=== PATIENT | male | born 2000 | race Two or more races ===

== ENCOUNTER 2020-01-26 14:58 | Emergency (ER) | payer OTHER ==
[~2020-01-26] VITALS: Ht 170.2 cm; Wt 72.6 kg
--- NOTE | 2020-01-26 15:41 | Emergency Room Report ---
History of Present Illness General Chief Complaint: Sore Throat Source: Patient Present Illness HPI 19-year-old male presents to the emergency department complaining 5 out of 10 severity pain and tenderness to the throat as well as an associated headache x2 days. Patient reports fevers and chills. He reports he has been taking Tylenol at home which does provide some relief of his pain and his fever. Patient reports he last took Tylenol at 6 AM this morning. Patient denies cough, shortness of breath, neck pain/stiffness or photophobia. He denies pain or swelling that is unilateral in the throat. He denies changes in his voice. He denies difficulty with swallowing or tolerating his own oral secretions. He reports just exacerbation of pain when doing so. He denies history of immune compromise. Denies recent travel. Denies contact with persons who have tested positive for or are under investigation/quarantine for COVID-19. Allergies: Coded Allergies: No Known Allergies (Unverified , 01/26/20) COVID-19 Screening Contact w/high risk pt: No Experienced COVID-19 symptoms?: Yes COVID-19 Testing performed TOWER TRUCK DRIVER: No Patient History Past Medical History: see triage record Past Surgical History: none Pertinent Family History: none Immunizations: UTD Reviewed Nursing Documentation: PMH: Agreed; PSxH: Agreed Nursing Documentation-PMH Past Medical History: No Stated History Review of Systems All Other Systems: negative except mentioned in HPI Physical Exam Vital Signs Date Time Temp Pulse Resp B/P (MAP) Pulse Ox O2 Delivery O2 Flow Rate FiO2 01/26/20 15:07 102.4 120 18 137/82 (100) 99 Room Air Sp02 EP Interpretation: reviewed, normal General Appearance: no apparent distress, alert, GCS 15, non-toxic Head: normocephalic, atraumatic Eyes: bilateral eye normal inspection, bilateral eye PERRL ENT: hearing grossly normal, normal voice, uvula midline, tonsillar swelling, p haryngeal erythema Neck: full range of motion, no meningismus Respiratory: chest non-tender, lungs clear, normal breath sounds, no respiratory distress, no accessory muscle use, no wheezing, speaking full sentences Cardiovascular #1: regular rate, rhythm, tachycardia Musculoskeletal: normal range of motion, gait/station normal, non-tender Neurologic: alert, motor strength/tone normal, oriented x3, sensory intact, responsive, speech normal Psychiatric: judgement/insight normal Skin: no rash, normal color Medical Decision Making PA Attestation Dr. Jaramillo Is my supervising Physician whom patient management has been discussed with. Diagnostic Impression: Primary Impression: Pharyngitis, acute Qualified Codes: J02.0 - Streptococcal pharyngitis Additional Impression: Fever Qualified Codes: R50.9 - Fever, unspecified ER Course 19-year-old male presents to the emergency department complaining 5 out of 10 severity pain and tenderness to the throat as well as an associated headache x2 days. Patient reports fevers and chills. He reports he has been taking Tylenol at home which does provide some relief of his pain and his fever. Patient reports he last took Tylenol at 6 AM this morning. Patient denies cough, shortness of breath, neck pain/stiffness or photophobia. He denies pain or swelling that is unilateral in the throat. He denies changes in his voice. He denies difficulty with swallowing or tolerating his own oral secretions. He reports just exacerbation of pain when doing so. He denies history of immune compromise. Denies recent travel. Denies contact with persons who have tested positive for or are under investigation/quarantine for COVID-19. Ddx considered but are not limited to: pharyngitis, strep, TOWER TRUCK DRIVER, ludwigs angina, URI Vital signs: Pt. is tachycardic and febrile on arrival. H&PE are most consistent with: pharyngitis presumed strep. No evidence of TOWER TRUCK DRIVER or retropharyngeal abscess. Patient is able to tolerate his own secretions. Patient is in no acute distress. ORDERS: None required at this time as the diagnosis is clinical ED INTERVENTIONS: -Tylenol PO - Lidocaine Viscous PO - Augmenting PO DISCHARGE: At this time pt. is stable for d/c to home. Will provide printed patient care instructions, and any necessary prescriptions. Care plan and follow up instructions have been discussed with the patient prior to discharge. Last Vital Signs Date Time Temp Pulse Resp B/P (MAP) Pulse Ox O2 Delivery O2 Flow Rate FiO2 01/26/20 15:07 102.4 120 18 137/82 (100) 99 Room Air Status: improved Disposition: HOME, SELF-CARE Condition: Stable Scripts Lidocaine HCl 2% Viscous (Lidocaine HCl 2% Viscous) 100 Ml Solution 10 ML ORAL QID for pain, #120 ML Prov: Reyna Rizo 01/26/20 Ibuprofen* (MOTRIN*) 600 Mg Tablet 600 MG ORAL THREE TIMES A DAY, #30 TAB Prov: Reyna Rizo 01/26/20 Acetaminophen* (TYLENOL EXTRA STRENGTH*) 500 Mg Tablet 500 MG ORAL Q6H, #30 TAB 0 Refills Prov: Reyna Rizo 01/26/20 Amoxicillin/Potassium Clav 875-125* (AUGMENTIN 875-125 TABLET*) 1 Each Tablet 1 TAB ORAL TWICE A DAY for 10 Days, #20 TAB Prov: Reyna Rizo 01/26/20 Referrals: [facility] Patient Instructions: Strep Throat Additional Instructions: Take medications as directed. Follow up with a Primary Care Provider in 3-5 days, even if your symptoms have resolved. --Please review list of primary care clinics, if you do not already have a [facility] care provider Return sooner to ED if new symptoms occur, or current symptoms become worse. - Please note that this Emergency Department Report was dictated using [employer] domestic [employer] technology software, occasionally this can lead to erro neous entry secondary to interpretation by the dictation equipment. Reyna Rizo Jan 26, 2020 15:41
[2020-01-26] MEDS ORDERED: TYLENOL EXTRA500 MG ORAL (15:44)
[2020-01-26] MEDS ORDERED: AUGMENTIN 875-1 EAC1 ORAL (15:44)
[2020-01-26] MEDS ORDERED: LIDOCAINE VISC100 ML ORAL (15:44)
[2020-01-26] MEDS ORDERED: IBUPROFEN600 M1 ORAL (15:44)
[2020-01-26] MEDS: Lidocaine 2% Visc 15ml soln ORAL ONE (15:51)
[2020-01-26] MEDS: Augmentin 875mg Tab ORAL ONE (15:52)
--- NOTE | 2020-01-26 15:55 | NUR ---
ED Nurse Note: Pt cleared by health care Provider for discharge. DC instructions/prescription was given and explained to pt and verbalized understanding of teachings. All medical deviecs such as ID band removed. Pt is AAO x4, ambulatory and left with all personal belongings.
[2020-01-26 17:40] VITALS: BP 130/79
== END 2020-01-26 16:00 | disposition home or self-care (01) ==
LOC: EDSEX 14:58 → EMR 15:40
DX: J02.0 Streptococcal pharyngitis (principal); R50.9 Fever, unspecified
CPT/HCPCS: 99282